=== PATIENT | male | born 1940 | race Caucasian/White ===

== ENCOUNTER → 2016-12-16 | Outpatient (CLI) | payer MEDICARE ==
[~2016-12-16] MED LIST: BENICAR PO; CETIRIZINE HCL10 MG PO; FISH OIL 1,0001 CAP PO; FISH OIL 1,001000 MG PO; LIPITOR PO; LIPITOR20 MG PO; LISINOPRIL PO; MOBIC15 MG PO; MULTI-VITAMIN1 TAB PO; MULTIVITAMINS1 EAC2 PO; NEXIUM PO; PROBIOTIC BLEN1 EACH PO; ZYRTEC PO
--- NOTE | ~2016-12-16 | NM8 ---
[facility] A Service of [facility] & [facility] RADIOLOGY TEXT RESULTS PATIENT: ARMANDO HARVEY LOCATION: [facility] : 42 UNIT #: [id number] AGE: [address]: Abrahan López MD SEX: M ORDER DR: [id number] [facility] [address] [place], [place] [address] [id number] O MR#: [id number] Acc #: [id number] NAME: ARMANDO HARVEY : 1940 SEX: M STUDY DATE/TIME: 12/16/2016 11:54 UNIT: [facility] ROOM: STUDY DESCRIPTION: NM Bone or Joint Whole Body Attending Physician: Abrahan López M.D. Referring Physician: Abrahan López M.D. Ordering Physician: Abrahan López M.D. Primary Care Physician: Theodora Dewitt M.D. MEDICAL IMAGING REPORT This report is preliminary unless electronic signature is present EXAM Whole-body bone scan. HISTORY 76-year-old male diagnosed with prostate cancer 5-6 years ago, elevated PSA. COMPARISON CT abdomen and pelvis 12/16/16. FINDINGS Whole-body and selected spot images were performed of the axial and appendicular skeleton following the intravenous administration of 33.9 mCi technetium 99m MDP. Examination demonstrates increased uptake within the left wrist, left great toe compatible with degenerative change. No abnormal uptake identified within the long bones, ribs, pelvis or skull to suggest metastatic disease. Minimal increased uptake is seen in the lower lumbar spine most likely degenerative in nature and corresponds to degenerative changes as noted on recent CT scan. Bilateral renal activity and normal bladder activity noted. IMPRESSION 1. No bone scan findings to suggest osseous metastatic disease. 2. Degenerative uptake left wrist, left great toe and lower lumbar spine. Dictated by... Rosa Wynne M.D. THIS IS AN ELECTRONICALLY VERIFIED REPORT Rosa Wynne M.D. at 12/17/2016 5:08 PM DUSTIN/angella TD: 12/17/2016 09:13 STS. [facility] A Service of [facility] & [facility] RADIOLOGY TEXT RESULTS PATIENT: ARMANDO HARVEY LOCATION: [facility] : 42 UNIT #: [id number] AGE: [address]: Abrahan López MD SEX: M ORDER DR: JOB #: [id number] MEDICAL IMAGING REPORT Page 1 of 1 COPY
--- NOTE | ~2016-12-16 | CT3 ---
[facility] A Service of [facility] & [facility] RADIOLOGY TEXT RESULTS PATIENT: ARMANDO HARVEY [facility] UNIT #: [id number] AGE: [address]: Abrahan López MD SEX: M ORDER DR: [id number] [facility] [address] [place], [place] [address] [id number] O MR#: [id number] Acc #: [id number] NAME: ARMANDO HARVEY : 1940 SEX: M STUDY DATE/TIME: 12/16/2016 9:34 UNIT: [facility] ROOM: STUDY DESCRIPTION: CT Abd and Pelv WWo Cont Attending Physician: Abrahan López M.D. Referring Physician: Abrahan López M.D. Ordering Physician: Abrahan López M.D. Primary Care Physician: Theodora Dewitt M.D. MEDICAL IMAGING REPORT This report is preliminary unless electronic signature is present EXAM CT of the abdomen without and with contrast patient. INDICATIONS Nodular prostate. Patient has had a history of prostate cancer for years. Exam was requested for surveillance for metastatic disease. TECHNIQUE Axial precontrast imaging was obtained through the abdomen and pelvis followed by postcontrast imaging through the abdomen and pelvis. This CT exam was performed with one or more of the following radiation dose reduction techniques: automatic exposure control, adjustment of mA and/or kV according to patient size, and iterative reconstruction. FINDINGS Images through the lung bases demonstrate some background of emphysematous changes. The patient does have cholelithiasis without evidence of acute cholecystitis. A few scattered low-attenuation lesions are seen within the spleen. The largest measures about 1.5 cm and is favored to represent benign lesion such cyst or hemangiomata. Pancreas is within normal limits, as are the stomach and proximal small bowel. Adrenal glands and liver appear normal, as do the kidneys. The patient's aorta is tortuous and ectatic measuring up to about 2.4 x 2 cm. I do not see any retroperitoneal adenopathy. 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 The patient's external iliac arteries are also diffusely enlarged measuring 144 cm on the left and 1.4 cm on the right. Urinary bladder appears unremarkable. This patient has colonic diverticulosis, although I do not see any definite evidence of diverticulitis. The appendix is visualized and is STS. [facility] A Service of [facility] RADIOLOGY TEXT RESULTS PATIENT: ARMANDO HARVEY LOCATION: [facility] : 44 UNIT #: [id number] AGE: [address]: Abrahan López MD SEX: M ORDER DR: within normal limits. There is some shotty pelvic lymph nodes which are indeterminate, for example right pelvic sidewall node measures about 8 mm in size and a second more inferiorly located node measures about 6 mm in short-axis dimensions. Prostate gland is enlarged and measures up to about 5.6 cm and protrudes into the base of the bladder and is heterogeneous in appearance. Review of bony windows demonstrates some lumbar scoliosis with convexity to the left. Convincing evidence of diffuse osseous metastatic disease is not seen, however correlation with this patient's scheduled bone scan is suggested. IMPRESSION 1. Patient has some shotty pelvic lymph nodes of uncertain clinical significance. There is no retroperitoneal adenopathy. Prostate gland is enlarged and heterogeneous, but certainly MRI would be much more sensitive for evaluation with any underlying prostatic lesion. Certainly I do not see any convincing evidence of metastatic disease to the abdomen, and there is no convincing evidence of widespread osseous metastatic disease. Correlation with this patient's scheduled bone scan is recommended. 2. Cholelithiasis. 3. 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 4. 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 Dictated by... Kemi Emmanuel M.D. THIS IS AN ELECTRONICALLY VERIFIED REPORT Kemi Emmanuel M.D. at 12/18/2016 8:31 AM AFF/gz TD: 12/17/2016 07:04 JOB #: [id number] MEDICAL IMAGING REPORT Page 1 of 1 COPY
[2016-12-16 11:01] LABS: POC - CREATININE 0.85 mg/dL (0.64-1.27); POC - GFR >60.0 mL/min (>60)
== END | disposition home or self-care (01) ==
LOC: CCAT 08:11
PROVIDERS: Urology
DX: C61 Malignant neoplasm of prostate (principal); N40.2 Nodular prostate without lower urinary tract symptoms; K80.20 Calculus of gallbladder without cholecystitis without obstruction; I72.3 Aneurysm of iliac artery; I77.810 Thoracic aortic ectasia; I77.1 Stricture of artery; R93.7 Abnormal findings on diagnostic imaging of other parts of musculoskeletal system
CPT/HCPCS: 74178; 78306; 82565; A9503; Q9967